=== PATIENT | male | born 1980 | race African-American/Black ===

== ENCOUNTER 2020-05-05 18:21 | Emergency (ER) | payer OTHER, MEDICAID ==
[~2020-05-05] VITALS: Ht 185.4 cm; Wt 165.6 kg
--- NOTE | 2020-05-05 18:42 | NUR ---
Patient ambulated to bed 6. RN evaluating patient at bedside.
[2020-05-05 18:44] VITALS: BP 173/95
--- NOTE | 2020-05-05 18:48 | NUR ---
Dr. Oliveira is evaluating the patient at bedside.
[2020-05-05 18:59] VITALS: BP 173/95
[2020-05-05] MEDS ORDERED: CYCLOBENZAPRINE 10 MG TAB PO ONE (19:00)
[2020-05-05] MEDS ORDERED: KETOROLAC 30 MG/ML VIAL IM ONE (19:00)
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
--- NOTE | 2020-05-05 19:00 | NUR ---
recived report from dipti pavon. transfer of care at this time.
--- NOTE | 2020-05-05 19:36 | NUR ---
PT TAKEN TO [facility] VIA WHEEL CHAIR. DAUGHTER LEFT WITH MOTHER.
--- NOTE | 2020-05-05 19:56 | NUR ---
PT RETURNED FROM [facility] VIA WHEELCHAIR
--- NOTE | 2020-05-05 20:00 | NUR ---
Patient discharged with v/s stable. Written and verbal after care instructions given and explained. Patient alert, oriented and verbalized understanding of instructions. Ambulatory with steady gait. All questions addressed prior to discharge. ID band removed. Patient advised to follow up with PMD. Rx of FLEXERIL AND IBUPROFEN given. Patient educated on indication of medication including possible reaction and side effects. Opportunity to ask questions provided and answered.
== END 2020-05-05 20:00 | disposition home or self-care (01) ==
LOC: MED 18:21
DX: M54.2 Cervicalgia (principal); V89.2XXA Person injured in unspecified motor-vehicle accident, traffic, initial encounter; Y93.89 Activity, other specified; Y92.89 Other specified places as the place of occurrence of the external cause; Y99.8 Other external cause status
CPT/HCPCS: 72050; 96372; 99283; J1885